=== PATIENT | female | born 1940 | race Asian ===

== ENCOUNTER 2018-02-20 07:34 | Emergency (ER) | payer MEDICARE, MEDICAID ==
[~2018-02-20] VITALS: Ht 147.3 cm; Wt 50.9 kg
[2018-02-20 07:35] VITALS: BP 143/78
--- NOTE | 2018-02-20 07:41 | NUR ---
Pt presents to ED with left knee laceration after fall on concrete at home 1 hr ago. Basehor shaped 3cm laceration. Pt states she ambulates with cane and states she did not hit her head. VSS. Pt states no v/d or dizziness. Pt states no numbmess or tingling bedlow site of injury. Skin clool and dry. Bleeding under control. ER MD aware. Continue to monitor.
[2018-02-20] MEDS ORDERED: CEPHALEXIN 500 MG CAP PO ONE (08:15)
[2018-02-20] MEDS ORDERED: SULFAMETH/TRIMETH DS 800/160MG 1 TAB PO ONE (08:15)
[2018-02-20] MEDS ORDERED: LIDOCAINE 1% 500 MG/50 ML VIAL INJ SCH (08:25)
[2018-02-20] MEDS ORDERED: LIDOCAINE/EPI 1% 1:100000 20 ML VIAL INJ ONE (08:26)
[2018-02-20] MEDS ORDERED: LIDOCAINE MPF 1% - **ER/OR** 5 ML ONE (08:28)
[2018-02-20] MEDS ORDERED: BACITRACIN OINT 500 UNITS/GM PKT TP ONE (09:13)
[2018-02-20 09:40] VITALS: BP 127/62
--- NOTE | 2018-02-20 09:40 | NUR ---
Patient discharged with v/s stable. Written and verbal after care instructions given and explained. Patient alert, oriented and verbalized understanding of instructions. Ambulatory with steady gait. All questions addressed prior to discharge. ID band removed. Patient advised to follow up with PMD. Rx of BACTRIM AND KEFLIX given. Patient educated on indication of medication including possible reaction and side effects. Opportunity to ask questions provided and answered.
== END 2018-02-20 09:40 | disposition home or self-care (01) ==
LOC: MED 07:34
DX: S81.012A Laceration without foreign body, left knee, initial encounter (principal); Z88.0 Allergy status to penicillin; W18.30XA Fall on same level, unspecified, initial encounter; Y93.89 Activity, other specified; Y92.89 Other specified places as the place of occurrence of the external cause; Y99.8 Other external cause status
CPT/HCPCS: 12001; 73562; 90471; 90715; 99284; J2001; Q0092

== ENCOUNTER 2018-02-22 09:12 | Emergency (ER) | payer MEDICARE, MEDICAID ==
[~2018-02-22] VITALS: Ht 149.9 cm; Wt 50.5 kg
[2018-02-22 09:16] VITALS: BP 120/69
--- NOTE | 2018-02-22 09:22 | NUR ---
PT AMBULATED TO BED 10, BACK IN FOR FALL RECHECK
--- NOTE | 2018-02-22 09:39 | NUR ---
DR ROSADO EVALUATING PT AT BEDSIDE
[2018-02-22 09:49] VITALS: BP 120/69
--- NOTE | 2018-02-22 09:50 | NUR ---
Patient discharged with v/s stable. Written and verbal after care instructions given and explained. Patient verbalized understanding. Ambulatory with steady gait. All questions addressed prior to discharge. Advised to follow up with PMD.
--- NOTE | 2018-02-22 09:50 | NUR ---
CLEAN DRESSING APPLIED WITH BACITRACIN
== END 2018-02-22 09:50 | disposition home or self-care (01) ==
LOC: MED 09:12
DX: S81.012D Laceration without foreign body, left knee, subsequent encounter (principal); I10 Essential (primary) hypertension; Z88.0 Allergy status to penicillin; W19.XXXD Unspecified fall, subsequent encounter
CPT/HCPCS: 99282

== ENCOUNTER 2018-02-27 15:05 | Emergency (ER) | payer MEDICARE, MEDICAID ==
[~2018-02-27] VITALS: Ht 149.9 cm; Wt 50.8 kg
[2018-02-27 15:14] VITALS: BP 134/74
[2018-02-27 15:37] VITALS: BP 134/74
== END 2018-02-27 15:37 | disposition home or self-care (01) ==
LOC: MED 15:05
DX: S81.012D Laceration without foreign body, left knee, subsequent encounter (principal); I10 Essential (primary) hypertension; Z88.0 Allergy status to penicillin; X58.XXXD Exposure to other specified factors, subsequent encounter
CPT/HCPCS: 99281

== ENCOUNTER 2018-04-30 17:01 | Emergency (ER) | payer MEDICAID, MEDICARE ==
[~2018-04-30] VITALS: Ht 154.9 cm; Wt 50.8 kg
[2018-04-30 17:30] VITALS: BP 131/73
--- NOTE | 2018-04-30 17:39 | NUR ---
PT ASKED ABOUT OVER THE COUNTER PRODUCTS FOR CORN RELIEF--- --A COUPLE OF NAMES FOUND ON LINE THROUGH [employer] AND [employer] GIVEN TO PT. PT DOES NOT WISH TO SEE MD ANY LONGER--ENCOURAGED TO RETURN FOR ANY MEDICAL EMERGENCIES
== END 2018-04-30 17:41 | disposition left against medical advice (07) ==
LOC: MED 17:01
DX: M79.676 Pain in unspecified toe(s) (principal); Z53.21 Procedure and treatment not carried out due to patient leaving prior to being seen by health care provider

== ENCOUNTER 2023-05-14 20:49 | Emergency (ER) | payer BC, MEDICAID ==
[~2023-05-14] VITALS: Ht 147.3 cm; Wt 49.9 kg
[2023-05-14 20:55] VITALS: BP 140/94; PULSE 68; RESP 15; TEMP 97.8; O2SAT 97
[2023-05-15 00:27] LABS: APPEARANCE,URINE CLEAR (CLEAR); BILIRUBIN,URINE NEGATIVE (NEGATIVE); BLOOD, URINE 1+ (NEGATIVE); COLOR,URINE YELLOW (YELLOW); LEUKOCYTE ESTERASE ,URINE TRACE (NEGATIVE); NITRITE, URINE NEGATIVE (NEGATIVE); PH,URINE 7.5 (5.0-9.0); UGLUCOSE NEGATIVE (NEGATIVE)
[2023-05-15] MEDS ORDERED: DICL100G5 TP (00:53)
[2023-05-15] MEDS ORDERED: CEPH500C16 PO (00:53)
[2023-05-15] MEDS ORDERED: ACET-2619 PO (00:53)
--- NOTE | 2023-05-15 00:59 | NUR ---
Patient discharged with v/s stable. Written and verbal after care instructions given and explained. Patient alert, oriented and verbalized understanding of instructions. Ambulatory with steady gait. All questions addressed prior to discharge. ID band removed. Patient advised to follow up with PMD. Rx oF TYLENOL, KELFEX, AND DICLOFENAC given. Patient educated on indication of medication including possible reaction and side effects. Opportunity to ask questions provided and answered.
== END 2023-05-15 00:59 | disposition home or self-care (01) ==
LOC: MED 20:49
DX: M17.0 Bilateral primary osteoarthritis of knee (principal); N39.0 Urinary tract infection, site not specified; M54.50 Low back pain, unspecified; I10 Essential (primary) hypertension; E78.5 Hyperlipidemia, unspecified; Z79.899 Other long term (current) drug therapy; Z79.2 Long term (current) use of antibiotics; Z88.0 Allergy status to penicillin
CPT/HCPCS: 81001; 87086; 99283

== ENCOUNTER 2023-10-22 11:04 | Emergency (ER) | payer BC, MEDICAID ==
[~2023-10-22] VITALS: Ht 157.5 cm; Wt 59.0 kg
[~2023-10-22 11:04] MED LIST: ACET-2619 PO; CEPH500C16 PO; DICL100G32 TP
[2023-10-22 11:31] VITALS: BP 138/79; PULSE 81; RESP 18; TEMP 98; O2SAT 98
[2023-10-22 13:28] LABS: FLU A ANTIGEN negative (NEGATIVE); FLU B ANTIGEN NEGATIVE (NEGATIVE)
[2023-10-22] MEDS ORDERED: NIRM1TAB PO (14:55)
[2023-10-22] MEDS ORDERED: ACET-2619 PO (14:55)
[2023-10-22] MEDS ORDERED: BENZ100C6 PO (14:55)
[2023-10-22 15:31] VITALS: BP 135/79; PULSE 78; RESP 18; TEMP 98; O2SAT 99
== END 2023-10-22 15:31 | disposition home or self-care (01) ==
LOC: MED 11:04
DX: U07.1 COVID-19 (principal); I10 Essential (primary) hypertension; E78.5 Hyperlipidemia, unspecified; Z79.899 Other long term (current) drug therapy; Z79.2 Long term (current) use of antibiotics; Z88.0 Allergy status to penicillin
CPT/HCPCS: 71045; 87081; 99284